=== PATIENT | female | born 1970 | race Caucasian/White ===

== ENCOUNTER 2024-03-18 07:13 | Outpatient (OUT) | payer OTHER, SELFPAY ==
[2024-03-18 07:39] LABS: Basophils Absolute Auto 0.1 10^3/uL (0.0-0.1); Basophils Percent Auto 1.5 % (0.2-2.0); Eosinophils Absolute Auto 0.1 10^3/uL (0.0-0.7); Eosinophils Percent Auto 2.8 % (0.9-7.0); Hematocrit 40.1 % (36.0-48.0); Immature Granulocytes Abs Auto 0.01 10^3/uL (0.00-0.03); Immature Granulocytes Pct Auto 0.2 % (0.0-0.5); Lymphocytes Absolute Auto 1.9 10^3/uL (1.2-3.8); Lymphocytes Percent Auto 41.3 % (20.5-60.0); Mean Corpuscular HGB Conc 32.4 g/dL (29.9-35.2); Mean Corpuscular Hemoglobin 28.8 pg (26.7-34.0); Mean Corpuscular Volume 88.7 fL (81.0-99.0); Mean Platelet Volume 13.3 fL (9.5-13.5); Monocytes Absolute Auto 0.4 10^3/uL (0.3-0.8); Monocytes Percent Auto 9.3 % (1.7-12.0); Neutrophils Absolute Auto 2.1 10^3/uL (1.4-6.5); Neutrophils Percent Auto 44.9 % (43.0-75.0); Platelet Count 158 10^3/uL (150-450); Red Blood Count 4.52 10^6/uL (4.20-5.40); Red Cell Distribution Width 13.2 % (11.0-15.0); White Blood Count 4.6 10^3/uL (4.0-11.0)
[2024-03-18 07:50] LABS: Estimated Average Glucose 108 mg/dL; Glycohemoglobin A1C 5.4 % (4.5-6.2)
[2024-03-18 08:02] LABS: Alanine Aminotransferase 16 U/L (14-59); Albumin Globulin Ratio 1.2; Alkaline Phosphatase 56 U/L (46-116); Aspartate Amino Transferase 19 U/L (15-37); BUN Creatinine Ratio 14.1; Bilirubin Total 0.9 mg/dL (0.2-1.0); Calcium 8.7 mg/dL (8.5-10.1); Carbon Dioxide 25.8 mmol/L (21.0-32.0); Chloride 103 mmol/L (98-107); Chol HDL Ratio 3.6; Cholesterol 179 mg/dL (<=200); Estimated GFR (African America >60 (>=60 mL/min/1.73m^2); Estimated GFR (Non-African Ame >60 (>=60 mL/min/1.73m^2); Free T3 2.21 pg/mL (2.18-3.98); Globulin 3.3 g/dL; Glucose 75 mg/dL (74-106); HDL Cholesterol 50 mg/dL (40-60); Potassium 3.8 mmol/L (3.5-5.1); Sodium 140 mmol/L (136-145); Thyroid Stimulating Hormone 1.572 uIU/mL (0.358-3.740); Total Protein 7.3 g/dL (6.4-8.2); Triglycerides 55 mg/dL (<=150)
== END 2024-03-18 07:14 | disposition home or self-care (01) ==
LOC: LAB 07:13
PROVIDERS: PCP Family Medicine; Visit Provider Family Medicine
DX: Z00.00 Encounter for general adult medical examination without abnormal findings (principal); E78.5 Hyperlipidemia, unspecified; R53.83 Other fatigue; Z12.12 Encounter for screening for malignant neoplasm of rectum; I10 Essential (primary) hypertension; E03.9 Hypothyroidism, unspecified; R73.09 Other abnormal glucose
CPT/HCPCS: 36415; 80053; 80061; 83036; 84436; 84443; 84481; 85025

== ENCOUNTER 2024-03-24 07:42 | Outpatient (REF) | payer OTHER, SELFPAY ==
--- OUTSIDE RECORDS SUMMARY | 2024-03-24 07:45 | XMS_ITS | CCD ---
Author Organization [facility] Care Team Providers Care Program Manager Transportation Name Role Phone Brian Herrera Primary Care Provider HOY, BRIAN Primary Care Unavailable HOY, BRIAN Consulting Unavailable HOY, BRIAN Attending Unavailable HOY, BRIAN Admitting Unavailable HOY, BRIAN Admitting Unavailable HOY, BRIAN Primary Care Unavailable HOY, BRIAN Consulting Unavailable HOY, BRIAN Attending Unavailable HOY, BRIAN Admitting Unavailable HOY, BRIAN Primary Care Unavailable HOY, BRIAN Consulting Unavailable HOY, BRIAN Attending Unavailable GENOVEVA LUTZ Referring Unavailable BRIAN HERRERA Primary Care Unavailable Medications Current Medications Medication Drug Class(es) Dates Sig (Normalized) Sig (Original) calcium carbonate 500 mg oral tablet (1 source) take 1 tablet by aniket th once daily calcium carbonate (OSCAL) 500 MG TABS tablet Take 500 mg by mouth daily 0 Active Problems Active Problems Problem Classification Problem Date Documented Date Episodic/Chronic Diabetes mellitus without complication (1 source) Hyperglycemia, unspecified; Translations: [HYPERGLYCEMIA UNSPECIFIED] Onset: 05-19-2022 Episodic Disorders of lipid metabolism (5 sources) Hyperlipidemia, unspecified; Translations: [HYPERLIPIDEMIA UNSPECIFIED] Onset: 05-16-2022 Chronic Malaise and fatigue (1 source) Other fatigue; Translations: [OTHER FATIGUE] Onset: 05-19-2022 Episodic Menstrual disorders (1 source) Mid-cycle bleeding; Translations: [Intermenstrual bleeding] Chronic Nutritional deficiencies (1 source) Vitamin D deficiency, unspecified; Translations: [VITAMIN D DEFICIENCY UNSPECIFIED] Onset: 05-19-2022 Chronic Other screening for suspected conditions (not mental disorders or infectious disease) (5 sources) Encounter for screening for malignant neoplasm of rectum; Translations: [ENC SCREEN MALIG NEOPLASM RECTUM] Onset: 05-17-2022 Episodic Unclassified (1 source) Patient encounter status; Translations: [Women's annual routine gynecological examination] Past or Other Problems Problem Classification Problem Date Documented Da te Episodic/Chronic Genitourinary symptoms and ill-defined conditions (1 source) Microscopic hematuria; Translations: [Other microscopic hematuria] Onset: 12-28-2016 05-06-2019 Episodic Other diseases of kidney and ureters (1 source) Disorder of kidney and/or ureter; Translations: [Disorder of kidney and ureter, unspecified] Onset: 01-05-2017 05-06-2019 Episodic Results Test Name Value Interpretation Reference Range Facil ity Cytology Reporton 03-13-2023 Cytology report Cyto stain.thin prep Doc (Cvx/Vag) (NOTE) Path Number: [id number] DIAGNOSIS Imaged ThinPrep Pap - Cervical (1 monolayer slide): Specimen Adequacy: Satisfactory for evaluation. - Endocervical/transfor mation zone component present. Descriptive Diagnosis: Negative for intraepithelial lesion or malignancy. Cytotech Screener: EY Electronically Signed Out Rafal FRIAS(ASCP) ey/03/26/2023 Source of Specimen: A: Imaged ThinPrep Pap - Cervical (1 monolayer slide) HPV Reflex?.............. 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 The Pap smear is a screening test primarily for squamous epithelial lesions, which is subject to both false negative and false positive results. Your patient should be reminded to consult you immediately if she experiences any suspicious signs or symptoms, regardless of her Pap smear result. GYNECOLOGIC CYTOLOGY REPORT Patient Name: ENOC MONTE Courtney Med Rec: [id number] [employer] [facility] ANATOMIC PATHOLOGY [facility]. [place], [place] [address] Normal [facility] OCC BLD IMMUNO SCREENon 03-0 OCCULT BLOOD Negative Normal NEGATIVE [facility] Comment on above: Performed By: #### L IPID, T4, TSH, FT3, CMP #### [facility] [address] [place] [address] Dr. Jessica Bran CBC AUTO DIFFon 05-16-2022 BASO # 0.1 103/ul Normal 0.0-0.1 [facility] Comment on above: Performed By: #### L IPID, T4, TSH, FT3, CMP #### [facility] [address] [place] [address] Dr. Jessica Bran Basophils/100 WBC (Bld) 1.1 % Normal 0.2-2.0 [facility] Comment on above: Performed By: #### L IPID, T4, TSH, FT3, CMP #### [facility] [address] [place] [address] Dr. Jessica Bran EO # 0.2 103/ul Normal 0.0-0.7 [facility] Comment on above: Performed By: #### L IPID, T4, TSH, FT3, CMP #### [facility] [address] [place] [address] Dr. Jessica Bran Eosinophils/100 WBC (Bld) 2.5 % Normal 0.9-7.0 [facility] Comment on above: Performed By: #### L IPID, T4, TSH, FT3, CMP #### [facility] [address] [place] [address] Dr. Jessica Bran Erythrocyte distribution width (RBC) [Ratio] 12.8 % Normal 11.0-15.0 [facility] Comment on above: Performed By: #### L IPID, T4, TSH, FT3, CMP #### [facility] [address] [place] [address] Dr. Jessica Bran Hematocrit (Bld) [Volume fraction] 40.8 % Normal 36.0-48.0 [facility] Comment on above: Performed By: #### L IPID, T4, TSH, FT3, CMP #### [facility] [address] [place] [address] Dr. Jessica Bran Hemoglobin (Bld) [Mass/Vol] 13.5 g/dL Normal 12.0-16.0 [facility] Comment on above: Performed By: #### L IPID, T4, TSH, FT3, CMP #### [facility] [address] [place] [address] Dr. Jessica Bran IG # 0.01 10e3/ul Normal 0.00-0.03 [facility] Comment on above: Performed By: #### L IPID, T4, TSH, FT3, CMP #### [facility] [address] [place] [address] Dr. Jessica Bran IG % 0.2 % Normal 0.0-0.5 [facility] Comment on above: Performed By: #### L IPID, T4, TSH, FT3, CMP #### [facility] [address] [place] [address] Dr. Jessica Bran LYMPH # 2.1 103/ul Normal 1.2-3.8 [facility] Comment on above: Performed By: #### L IPID, T4, TSH, FT3, CMP #### [facility] [address] [place] [address] Dr. Jessica Bran Lymphocytes/100 WBC (Bld) 33.6 % Normal 20.5-60.0 [facility] Comment on above: Performed By: #### L IPID, T4, TSH, FT3, CMP #### [facility] [address] [place] [address] Dr. Jessica Bran MANUAL DIFF REQ NO Normal [facility] Comment on above: Performed By: #### L IPID, T4, TSH, FT3, CMP #### [facility] [address] [place] [address] Dr. Jessica Bran MCH (RBC) [Entitic mass] 28.8 pg Normal 26.7-34.0 [facility] Comment on above: Performed By: #### L IPID, T4, TSH, FT3, CMP #### [facility] [address] [place] [address] Dr. Jessica Bran MCHC (RBC) [Mass/Vol] 33.1 g/dL Normal 29.9-35.2 [facility] Comment on above: Performed By: #### L IPID, T4, TSH, FT3, CMP #### [facility] [address] [place] [address] Dr. Jessica Bran MCV (RBC) [Entitic vol] 87.0 fL Normal 81.0-99.0 [facility] Comment on above: Performed By: #### L IPID, T4, TSH, FT3, CMP #### [facility] [address] [place] [address] Dr. Jessica Bran MONO # 0.5 103/ul Normal 0.3-0.8 [facility] Comment on above: Performed By: #### L IPID, T4, TSH, FT3, CMP #### [facility] [address] [place] [address] Dr. Jessica Bran Monocytes/100 WBC (Bld) 7.7 % Normal 1.7-12.0 [facility] Comment on above: Performed By: #### L IPID, T4, TSH, FT3, CMP #### [facility] [address] [place] [address] Dr. Jessica Bran NEUT # 3.4 103/ul Normal 1.4-6.5 [facility] Comment on above: Performed By: #### L IPID, T4, TSH, FT3, CMP #### [facility] [address] [place] [address] Dr. Jessica Bran Neutrophils/100 WBC (Bld) 54.9 % Normal 43.0-75.0 [facility] Comment on above: Performed By: #### L IPID, T4, TSH, FT3, CMP #### [facility] [address] [place] [address] Dr. Jessica Bran Platelet mean volume (Bld) [Entitic vol] 12.4 fL Normal 9.5-13.5 [facility] Comment on above: Performed By: #### L IPID, T4, TSH, FT3, CMP #### [facility] [address] [place] [address] Dr. Jessica Bran PLT 181 103/ul Normal 150-450 [facility] Comment on above: Performed By: #### L IPID, T4, TSH, FT3, CMP #### [facility] [address] [address] [address] Jessica Barn RBC 4.69 106/ul Normal 4.20-5.40 [facility] Comment on above: Performed By: #### L IPID, T4, TSH, FT3, CMP #### [facility] [address] [address] [address] Jessica Bran WBC 6.1 103/ul Normal 4.0-11.0 [facility] Comment on above: Performed By: #### L IPID, T4, TSH, FT3, CMP #### [facility] [address] [place] [address] Dr. Jessica Bran FREE T3on 05-16-2022 FREE T3 2.76 pg/mlL Normal 2.18-3.98 [facility] Comment on above: Performed By: #### L IPID, T4, TSH, FT3, CMP #### [facility] [address] [place] [address] Dr. Jessica Bran GLYCOHEMOGLOBIN A1Con 2022 ADA RECOMMENDATION SEE BELOW Normal [facility] Comment on above: Result Comment: ADA RECOMMENDED LIMIT 4.0 - 6.0 ADA THERAPEUTIC TARGET < 7.0 ACTION SUGGESTED > 7.0 Performed By: #### A 1C #### [facility] [address] [place] [address] Dr. Jessica Bran Glucose [Mass/Vol] 100 mg/dL Normal [facility] Comment on above: Performed By: #### A 1C #### [facility] [address] [place] [address] Dr. Jessica Bran HbA1c (Bld) [Mass fraction] 5.1 % Normal 4.5-6.2 [facility] Comment on above: Performed By: #### A 1C #### [facility] [address] [place] [address] Dr. Jessica Bran LIPID PROFILEon 05-16-2022 CHOL-HDL RATIO NORM SEE BELOW Normal [facility] Comment on above: Result Comment: 3.3 - 4.4 LOW RISK 4.4 - 7.1 AVERAGE RISK 7.1 - 11.0 MODERATE RISK >11.0 HIGH RISK Performed By: #### L IPID, T4, TSH, FT3, CMP #### [facility] [address] [address] [address] Jessica Bran Cholesterol [Mass/Vol] 166 mg/dL Normal <=200 [facility] Comment on above: Performed By: #### L IPID, T4, TSH, FT3, CMP #### [facility] [address] [address] [address] Jessica Bran Cholesterol in HDL [Mass/Vol] 49 mg/dL Normal 40-60 [facility] Comment on above: Performed By: #### L IPID, T4, TSH, FT3, CMP #### [facility] [address] [place] [address] Dr. Jessica Bran Cholesterol in LDL [Mass/Vol] 102.6 mg/dL Normal [facility] Comment on above: Performed By: #### L IPID, T4, TSH, FT3, CMP #### [facility] [address] [address] [address] Jessica Bran Cholesterol.total/Cho lesterol in HDL [Mass ratio] 3.4 {ratio} Normal [facility] Comment on above: Performed By: #### L IPID, T4, TSH, FT3, CMP #### [facility] [address] [address] [address] Jessica Bran HDL NORMAL > or = 60 mg/dl - LO W CARDIOVASCULAR RISK <40 mg/dl - HIGH CARDIOVASCULAR RISK Normal [facility] Comment on above: Performed By: #### L IPID, T4, TSH, FT3, CMP #### [facility] [address] [place] [address] Dr. Jessica Bran LDL CALC NORMAL SEE BELOW Normal [facility] Comment on above: Result Comment: <100 mg/dl OPTIMAL 100 - 129 mg/dl NEAR OR ABOVE OPTIMAL 130 - 159 mg/dl BORDERLINE HIGH 160 - 189 mg/dl HIGH >190 mg/dl VERY HIGH Performed By: #### L IPID, T4, TSH, FT3, CMP #### [facility] [address] [address] [address] Jessica Bran Triglyceride [Mass/Vol] 72 mg/dL Normal <=150 [facility] Comment on above: Performed By: #### L IPID, T4, TSH, FT3, CMP #### [facility] [address] [address] [address] Jessica Bran VLDL CALC 14.4 mg/dL Normal [facility] Comment on above: Performed By: #### L IPID, T4, TSH, FT3, CMP #### [facility] [address] [address] [address] Jessica Bran PROF 14(COMP METB)on 023 Albumin [Mass/Vol] 4.1 g/dL Normal 3.4-5.0 [facility] Comment on above: Performed By: #### L IPID, T4, TSH, FT3, CMP #### [facility] [address] [address] [address] Jessica Bran Albumin/Globulin [Mass ratio] 1.2 {ratio} Normal [facility] Comment on above: Performed By: #### L IPID, T4, TSH, FT3, CMP #### [facility] [address] [address] [address] Jessica Bran ALP [Catalytic activity/Vol] 64 U/L Normal 46-116 [facility] Comment on above: Performed By: #### L IPID, T4, TSH, FT3, CMP #### [facility] [address] [address] [address] Jessica Bran ALT [Catalytic activity/Vol] 15 U/L Normal 14-59 [facility] Comment on above: Performed By: #### L IPID, T4, TSH, FT3, CMP #### [facility] [address] [address] [address] Jessica Bran Anion gap [Moles/Vol] 8.7 mmol/L Normal [facility] Comment on above: Performed By: #### L IPID, T4, TSH, FT3, CMP #### [facility] [address] [place] [address] Dr. Jessica Bran AST [Catalytic activity/Vol] 17 U/L Normal 15-37 [facility] Comment on above: Performed By: #### L IPID, T4, TSH, FT3, CMP #### [facility] [address] [place] [address] Dr. Jessica Bran Bilirubin [Mass/Vol] 0.7 mg/dL Normal 0.2-1.0 [facility] Comment on above: Performed By: #### L IPID, T4, TSH, FT3, CMP #### [facility] [address] [place] [address] Dr. Jessica Bran Calcium [Mass/Vol] 9.1 mg/dL Normal 8.5-10.1 [facility] Comment on above: Performed By: #### L IPID, T4, TSH, FT3, CMP #### [facility] [address] [place] [address] Dr. Jessica Bran Chloride [Moles/Vol] 105 mmol/L Normal 98-107 [facility] Comment on above: Performed By: #### L IPID, T4, TSH, FT3, CMP #### [facility] [address] [place] [address] Dr. Jessica Bran CO2 [Moles/Vol] 28.4 mmol/L Normal 21.0-32.0 [facility] Comment on above: Performed By: #### L IPID, T4, TSH, FT3, CMP #### [facility] [address] [place] [address] Dr. Jessica Bran Creatinine [Mass/Vol] 0.73 mg/dL Normal 0.55-1.02 [facility] Comment on above: Performed By: #### L IPID, T4, TSH, FT3, CMP #### [facility] [address] [place] [address] Dr. Jessica Bran EGFR-AF EGYPTIAN >60 Normal >=60 [facility] Comment on above: Performed By: #### L IPID, T4, TSH, FT3, CMP #### [facility] [address] [place] [address] Dr. Jessica Bran EGFR-NON AF EGYPTIAN >60 Normal >=60 [facility] Comment on above: Performed By: #### L IPID, T4, TSH, FT3, CMP #### [facility] [address] [place] [address] Dr. Jessica Bran Globulin (S) [Mass/Vol] 3.4 g/dL Normal [facility] Comment on above: Performed By: #### L IPID, T4, TSH, FT3, CMP #### [facility] [address] [place] [address] Dr. Jessica Bran Glucose [Mass/Vol] 90 mg/dL Normal 74-106 [facility] Comment on above: Performed By: #### L IPID, T4, TSH, FT3, CMP #### [facility] [address] [place] [address] Dr. Jessica Bran Potassium [Moles/Vol] 4.1 mmol/L Normal 3.5-5.1 [facility] Comment on above: Performed By: #### L IPID, T4, TSH, FT3, CMP #### [facility] [address] [place] [address] Dr. Jessica Bran Protein [Mass/Vol] 7.5 g/dL Normal 6.4-8.2 [facility] Comment on above: Performed By: #### L IPID, T4, TSH, FT3, CMP #### [facility] [address] [place] [address] Dr. Jessica Bran Sodium [Moles/Vol] 138 mmol/L Normal 136-145 [facility] Comment on above: Performed By: #### L IPID, T4, TSH, FT3, CMP #### [facility] [address] [place] [address] Dr. Jessica Bran Urea nitrogen [Mass/Vol] 7.0 mg/dL Normal 7.0-18.0 [facility] Comment on above: Performed By: #### L IPID, T4, TSH, FT3, CMP #### [facility] [address] [place] [address] Dr. Jessica Bran Urea nitrogen/Creatinine [Mass ratio] 9.6 mg/mg Normal [facility] Comment on above: Performed By: #### L IPID, T4, TSH, FT3, CMP #### [facility] [address] [place] [address] Dr. Jessica Bran T4on 05-16-2022 T4 [Mass/Vol] 6.40 ug/dL Normal 4.80-13.90 [facility] Comment on above: Performed By: #### L IPID, T4, TSH, FT3, CMP #### [facility] [address] [place] [address] Dr. Jessica Bran TSHon 05-16-2022 TSH 1.628 uIU/mL Normal 0.358-3.740 [facility] Comment on above: Performed By: #### L IPID, T4, TSH, FT3, CMP #### [facility] [address] [place] [address] Dr. Jessica Bran VITAMIN D 25 OHon 05-16-2022 VIT D 25-OH 26.4 ng/mL Normal [facility] Comment on above: Performed By: #### V ITAD #### [facility] [address] [place] [address] Dr. Jessica Bran VIT D RANGES SEE BELOW Normal [facility] Comment on above: Result Comment: <20 ng/mL Vit D deficient 20 - <30 ng/mL Vit D insufficient 30 - 100 ng/mL Vit D sufficient >100 ng/mL Potential Toxicity Performed By: #### V ITAD #### [facility] [address] [place] [address] Dr. Jessica Bran CBC AUTO DIFFon 07-07-2021 BASO # 0.1 103/ul Normal 0.0-0.1 [facility] Comment on above: Performed By: #### L IPID, T4, TSH, FT3, CMP #### [facility] [address] [place] [address] Dr. Jessica Bran Basophils/100 WBC (Bld) 1.2 % Normal 0.2-2.0 [facility] Comment on above: Performed By: #### L IPID, T4, TSH, FT3, CMP #### [facility] [address] [place] [address] Dr. Jessica Bran EO # 0.1 103/ul Normal 0.0-0.7 [facility] Comment on above: Performed By: #### L IPID, T4, TSH, FT3, CMP #### [facility] [address] [place] [address] Dr. Jessica Bran Eosinophils/100 WBC (Bld) 2.1 % Normal 0.9-7.0 [facility] Comment on above: Performed By: #### L IPID, T4, TSH, FT3, CMP #### [facility] [address] [place] [address] Dr. Jessica Bran Erythrocyte distribution width (RBC) [Ratio] 12.6 % Normal 11.0-15.0 [facility] Comment on above: Performed By: #### L IPID, T4, TSH, FT3, CMP #### [facility] [address] [place] [address] Dr. Jessica Bran Hematocrit (Bld) [Volume fraction] 39.2 % Normal 36.0-48.0 [facility] Comment on above: Performed By: #### L IPID, T4, TSH, FT3, CMP #### [facility] [address] [place] [address] Dr. Jessica Bran Hemoglobin (Bld) [Mass/Vol] 12.5 g/dL Normal 12.0-16.0 [facility] Comment on above: Performed By: #### L IPID, T4, TSH, FT3, CMP #### [facility] [address] [place] [address] Dr. Jessica Bran IG # 0.03 10e3/ul Normal 0.00-0.03 [facility] Comment on above: Performed By: #### L IPID, T4, TSH, FT3, CMP #### [facility] [address] [place] [address] Dr. Jessica Bran IG % 0.5 % Normal 0.0-0.5 [facility] Comment on above: Performed By: #### L IPID, T4, TSH, FT3, CMP #### [facility] [address] [place] [address] Dr. Jessica Bran LYMPH # 1.9 103/ul Normal 1.2-3.8 [facility] Comment on above: Performed By: #### L IPID, T4, TSH, FT3, CMP #### [facility] [address] [place] [address] Dr. Jessica Bran Lymphocytes/100 WBC (Bld) 29.6 % Normal 20.5-60.0 [facility] Comment on above: Performed By: #### L IPID, T4, TSH, FT3, CMP #### [facility] [address] [place] [address] Dr. Jessica Bran MANUAL DIFF REQ NO Normal [facility] Comment on above: Performed By: #### L IPID, T4, TSH, FT3, CMP #### [facility] [address] [place] [address] Dr. Jessica Bran MCH (RBC) [Entitic mass] 28.1 pg Normal 26.7-34.0 [facility] Comment on above: Performed By: #### L IPID, T4, TSH, FT3, CMP #### [facility] [address] [place] [address] Dr. Jessica Bran MCHC (RBC) [Mass/Vol] 31.9 g/dL Normal 29.9-35.2 [facility] Comment on above: Performed By: #### L IPID, T4, TSH, FT3, CMP #### [facility] [address] [place] [address] Dr. Jessica Bran MCV (RBC) [Entitic vol] 88.1 fL Normal 81.0-99.0 [facility] Comment on above: Performed By: #### L IPID, T4, TSH, FT3, CMP #### [facility] [address] [place] [address] Dr. Jessica Bran MONO # 0.5 103/ul Normal 0.3-0.8 [facility] Comment on above: Performed By: #### L IPID, T4, TSH, FT3, CMP #### [facility] [address] [place] [address] Dr. Jessica Bran Monocytes/100 WBC (Bld) 8.3 % Normal 1.7-12.0 [facility] Comment on above: Performed By: #### L IPID, T4, TSH, FT3, CMP #### [facility] [address] [place] [address] Dr. Jessica Bran NEUT # 3.8 103/ul Normal 1.4-6.5 [facility] Comment on above: Performed By: #### L IPID, T4, TSH, FT3, CMP #### [facility] [address] [place] [address] Dr. Jessica Bran Neutrophils/100 WBC (Bld) 58.3 % Normal 43.0-75.0 [facility] Comment on above: Performed By: #### L IPID, T4, TSH, FT3, CMP #### [facility] [address] [place] [address] Dr. Jessica Bran Platelet mean volume (Bld) [Entitic vol] 12.8 fL Normal 9.5-13.5 [facility] Comment on above: Performed By: #### L IPID, T4, TSH, FT3, CMP #### [facility] [address] [place] [address] Dr. Jessica Bran PLT 188 103/ul Normal 150-450 [facility] Comment on above: Performed By: #### L IPID, T4, TSH, FT3, CMP #### [facility] [address] [place] [address] Dr. Jessica Bran RBC 4.45 106/ul Normal 4.20-5.40 [facility] Comment on above: Performed By: #### L IPID, T4, TSH, FT3, CMP #### [facility] [address] [place] [address] Dr. Jessica Bran WBC 6.5 103/ul Normal 4.0-11.0 [facility] Comment on above: Performed By: #### L IPID, T4, TSH, FT3, CMP #### [facility] [address] [address] [address] Jessica Bran FREE THYROXINE INDEX T7on FTI 2.74 Normal [facility] Comment on above: Performed By: #### C MP, T7, LIPID, TSH #### [facility] [address] [address] [address] Jessica Bran T3U 36.0 % Normal 23.5-40.5 [facility] Comment on above: Performed By: #### C MP, T7, LIPID, TSH #### [facility] [address] [place] [address] Dr. Jessica Bran T4 [Mass/Vol] 7.60 ug/dL Normal 4.80-13.90 [facility] Comment on above: Performed By: #### C MP, T7, LIPID, TSH #### [facility] [address] [place] [address] Dr. Jessica Bran GLYCOHEMOGLOBIN A1Con 2021 ADA RECOMMENDATION SEE BELOW Normal [facility] Comment on above: Result Comment: ADA RECOMMENDED LIMIT 4.0 - 6.0 ADA THERAPEUTIC TARGET < 7.0 ACTION SUGGESTED > 7.0 Performed By: #### A 1C #### [facility] [address] [place] [address] Dr. Jessica Bran Glucose [Mass/Vol] 108 mg/dL Normal [facility] Comment on above: Performed By: #### A 1C #### [facility] [address] [place] [address] Dr. Jessica Bran HbA1c (Bld) [Mass fraction] 5.4 % Normal 4.5-6.2 [facility] Comment on above: Performed By: #### A 1C #### [facility] [address] [place] [address] Dr. Jessica Bran LIPID PROFILEon 07-07-2021 CHOL-HDL RATIO NORM SEE BELOW Normal [facility] Comment on above: Result Comment: 3.3 - 4.4 LOW RISK 4.4 - 7.1 AVERAGE RISK 7.1 - 11.0 MODERATE RISK >11.0 HIGH RISK Performed By: #### L IPID, T4, TSH, FT3, CMP #### [facility] [address] [place] [address] Dr. Jessica Bran Cholesterol [Mass/Vol] 140 mg/dL Normal <=200 [facility] Comment on above: Performed By: #### L IPID, T4, TSH, FT3, CMP #### [facility] [address] [place] [address] Dr. Jessica Bran Cholesterol in HDL [Mass/Vol] 46 mg/dL Normal 40-60 [facility] Comment on above: Performed By: #### L IPID, T4, TSH, FT3, CMP #### [facility] [address] [place] [address] Dr. Jessica Bran Cholesterol in LDL [Mass/Vol] 83.4 mg/dL Normal [facility] Comment on above: Performed By: #### L IPID, T4, TSH, FT3, CMP #### [facility] [address] [place] [address] Dr. Jessica Bran Cholesterol.total/Cho lesterol in HDL [Mass ratio] 3.0 {ratio} Normal [facility] Comment on above: Performed By: #### L IPID, T4, TSH, FT3, CMP #### [facility] [address] [place] [address] Dr. Jessica Bran HDL NORMAL > or = 60 mg/dl - LO W CARDIOVASCULAR RISK <40 mg/dl - HIGH CARDIOVASCULAR RISK Normal [facility] Comment on above: Performed By: #### L IPID, T4, TSH, FT3, CMP #### [facility] [address] [place] [address] Dr. Jessica Bran LDL CALC NORMAL SEE BELOW Normal [facility] Comment on above: Result Comment: <100 mg/dl OPTIMAL 100 - 129 mg/dl NEAR OR ABOVE OPTIMAL 130 - 159 mg/dl BORDERLINE HIGH 160 - 189 mg/dl HIGH >190 mg/dl VERY HIGH Performed By: #### L IPID, T4, TSH, FT3, CMP #### [facility] [address] [place] [address] Dr. Jessica Bran Triglyceride [Mass/Vol] 53 mg/dL Normal <=150 [facility] Comment on above: Performed By: #### L IPID, T4, TSH, FT3, CMP #### [facility] [address] [address] [address] Jessica Bran VLDL CALC 10.6 mg/dL Normal [facility] Comment on above: Performed By: #### L IPID, T4, TSH, FT3, CMP #### [facility] [address] [address] [address] Jessica Bran PROF 14(COMP METB)on 022 Albumin [Mass/Vol] 3.8 g/dL Normal 3.4-5.0 [facility] Comment on above: Performed By: #### C MP, T7, LIPID, TSH #### [facility] [address] [address] [address] Jessica Bran Albumin/Globulin [Mass ratio] 1.1 {ratio} Normal [facility] Comment on above: Performed By: #### C MP, T7, LIPID, TSH #### [facility] [address] [address] [address] Jessica Bran ALP [Catalytic activity/Vol] 44 U/L Critically low 46-116 [facility] Comment on above: Performed By: #### C MP, T7, LIPID, TSH #### [facility] [address] [address] [address] Jessica Bran ALT [Catalytic activity/Vol] 16 U/L Normal 14-59 [facility] Comment on above: Performed By: #### C MP, T7, LIPID, TSH #### [facility] [address] [address] [address] Jessica Bran Anion gap [Moles/Vol] 12.4 mmol/L Normal [facility] Comment on above: Performed By: #### C MP, T7, LIPID, TSH #### [facility] [address] [address] [address] Jessica Bran AST [Catalytic activity/Vol] 12 U/L Critically low 15-37 [facility] Comment on above: Performed By: #### C MP, T7, LIPID, TSH #### [facility] [address] [address] [address] Jessica Bran Bilirubin [Mass/Vol] 0.7 mg/dL Normal 0.2-1.0 [facility] Comment on above: Performed By: #### C MP, T7, LIPID, TSH #### [facility] [address] [place] [address] Dr. Jessica Bran Calcium [Mass/Vol] 8.1 mg/dL Critically low 8.5-10.1 [facility] Comment on above: Performed By: #### C MP, T7, LIPID, TSH #### [facility] [address] [place] [address] Dr. Jessica Bran Chloride [Moles/Vol] 103 mmol/L Normal 98-107 [facility] Comment on above: Performed By: #### C MP, T7, LIPID, TSH #### [facility] [address] [place] [address] Dr. Jessica Bran CO2 [Moles/Vol] 24.5 mmol/L Normal 21.0-32.0 [facility] Comment on above: Performed By: #### C MP, T7, LIPID, TSH #### [facility] [address] [place] [address] Dr. Jessica Bran Creatinine [Mass/Vol] 0.79 mg/dL Normal 0.55-1.02 [facility] Comment on above: Performed By: #### C MP, T7, LIPID, TSH #### [facility] [address] [place] [address] Dr. Jessica Bran EGFR-AF EGYPTIAN >60 Normal >=60 [facility] Comment on above: Performed By: #### C MP, T7, LIPID, TSH #### [facility] [address] [place] [address] Dr. Jessica Bran EGFR-NON AF EGYPTIAN >60 Normal >=60 [facility] Comment on above: Performed By: #### C MP, T7, LIPID, TSH #### [facility] [address] [place] [address] Dr. Jessica Bran Globulin (S) [Mass/Vol] 3.4 g/dL Normal [facility] Comment on above: Performed By: #### C MP, T7, LIPID, TSH #### [facility] [address] [address] [address] Jessica Bran Glucose [Mass/Vol] 87 mg/dL Normal 74-106 [facility] Comment on above: Performed By: #### C MP, T7, LIPID, TSH #### [facility] [address] [address] [address] Jessica Bran Potassium [Moles/Vol] 3.9 mmol/L Normal 3.5-5.1 [facility] Comment on above: Performed By: #### C MP, T7, LIPID, TSH #### [facility] [address] [place] [address] Dr. Jessica Bran Protein [Mass/Vol] 7.2 g/dL Normal 6.1-8.2 [facility] Comment on above: Performed By: #### C MP, T7, LIPID, TSH #### [facility] [address] [address] [address] Jessica Bran Sodium [Moles/Vol] 136 mmol/L Normal 136-145 [facility] Comment on above: Performed By: #### C MP, T7, LIPID, TSH #### [facility] [address] [place] [address] Dr. Jessica Bran Urea nitrogen [Mass/Vol] 9.0 mg/dL Normal 7.0-18.0 [facility] Comment on above: Performed By: #### C MP, T7, LIPID, TSH #### [facility] [address] [place] [address] Dr. Jessica Bran Urea nitrogen/Creatinine [Mass ratio] 11.4 mg/mg Normal [facility] Comment on above: Performed By: #### C MP, T7, LIPID, TSH #### [facility] [address] [address] [address] Jessica Bran TSHon 07-07-2021 TSH 1.810 uIU/mL Normal 0.470-4.680 [facility] Comment on above: Performed By: #### L IPID, T4, TSH, FT3, CMP #### [facility] [address] [address] [address] Jessica Bran TSH RANGE SEE BELOW Normal [facility] Comment on above: Result Comment: <0.3 4 UIU/ml HYPERTHYROID 0.34-5.60 UIU/ml EUTHYROID >5.60 UIU/ml HYPOTHYROID Performed By: #### L IPID, T4, TSH, FT3, CMP #### [facility] [address] [place], [place] [address] Dr. Jessica Bran Encounters Encounter Date Encounter Type Care Provider Facility Start: 03-13-2023 End: 03-14-2023 ambulatory [facility] Start: 03-13-2023 Encounter for gynecological examination (general) (routine) without abnormal findings [facility] Start: 05-17-2022 End: 05-17-2022 ambulatory BRIAN HOY Facility:[facility] Start: 05-16-2022 End: 05-17-2022 ambulatory BRIAN HOY Facility:[facility] Start: 07-11-2021 Encounter for genera l adult medical examination without abnormal findings BRIAN HERRERA [facility] Start: 07-07-2021 End: 07-08-2021 ambulatory BRIAN HOY Facility:[facility] Start: 07-07-2021 End: 07-08-2021 Encounter for general adult medical examination without abnormal findings BRIAN HERRERA Facility: Start: 05-26-2020 End: 05-26-2020 Subsequent hospital visit by physician Brian Herrera [facility] Comment on above: Intermenstrual bleed ing; Women's annual routine gynecological examination Plan of Treatment Date Care Activity Detail Author Start: 05-19-2024 Lipid panel Lipid screen [employer] Phone: Start: 12-31-2022 Screening for malign ant neoplasm of cervix Cervical cancer screen [facility] Phone: Start: 04-27-2021 Influenza vaccination Flu vaccine (# 1) [facility] Phone: Comment on above: Postponed from 11/09 (Patient Refused) Start: 06-13-2020 End: 06-13-2020 Ancillary Procedure [facility] Start: 08-09-1990 DTaP/Tdap/Td vaccine (1 - Tdap) DTaP/Tdap/Td vaccine (1 - Tdap) [facility] Phone: Start: 08-09-1986 HIV screening HIV screen [facility] Work Phone: Start: 1971 Hepatitis C screening Hepatitis C sc reen [facility] Phone: End: 05-26-2020 Cytopathology procedure, preparation of smear, genital source [facility] Routine Women's Annual Routine Gynecological Examination 1 Occurrences starting 05/26/2020 until 05/26/2020 [facility] Comment on above: 1 Occurrences starti ng 05/26/2020 until 05/26/2020 End: 05-26-2020 Surgical Pathology Surgical Pathology Lab Routine Intermenstrual bleeding 1 Occurrences starting 05/26/2020 until 05/26/2020 [facility]: Comment on above: 1 Occurrences starti ng 05/26/2020 until 05/26/2020 Immunizations Immunization Date Immunization Notes Care Provider Mary felix 12-24-2006 tuberculin skin test ; purified protein derivative solution, intradermal [facility] Phone: Payers Date Payer Category Payer Unknown [id number] 1970 Unknown [id number] 1971 Unknown [id number] 1971 Unknown [id number] 1971 Unknown [id number] Social History Date Type Detail Facility Start: 05-26-2020 Tobacco smoking stat [facility] Never smoker [facility] Phone: Start: 05-26-2020 Tobacco use and exposure Never used [facility] Phone: Start: 05-26-2020 Alcohol intake Current non-dr delineator of alcohol (finding) [facility] Phone: Sex Assigned At Not on file [facility] Phone: Assessments Diagnosis Intermenstrual bleeding Metrorrhagia Women's annual routine gynecological examination Advance Directives No Advanced Directives Records FoundDocuments on File Type Date 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 This clinical summary was aggregated from multiple sources. Caution should be exercised in using it in the provision of clinical care. This summary normalizes information from multiple sources, and as a consequence, information in this document may materially change the coding, format and clinical context of patient data. In addition, data may be omitted in some cases. CLINICAL DECISIONS SHOULD BE BASED ON THE PRIMARY CLINICAL RECORDS. [employer] provides no warranty or guarantee of the accuracy or completeness of information in this document.
[2024-03-24 11:50] LABS: Internal Control Within Normal Limits; Occult Blood Positive
== END 2024-03-24 07:43 | disposition home or self-care (01) ==
LOC: LAB 07:42
PROVIDERS: PCP Family Medicine; Visit Provider Family Medicine
DX: Z00.00 Encounter for general adult medical examination without abnormal findings (principal)
CPT/HCPCS: G0328

== ENCOUNTER 2024-03-27 07:20 | Outpatient (OUT) | payer OTHER, SELFPAY ==
--- OUTSIDE RECORDS SUMMARY | 2024-03-27 07:22 | XMS_ITS | CCD ---
Author Organization [facility] Care Team Providers Care Extruding Press Operator Name Role Phone Brian Herrera Primary Care Provider [phone] HOY, BRIAN Primary Care Unavailable HOY, BRIAN [...] stain.thin prep Doc (Cvx/Vag) (NOTE) Path Number: [id number] DIAGNOSIS Imaged ThinPrep Pap - Cervical (1 monolayer slide): Specimen Adequacy: Satisfactory for evaluation. - Endocervical/transfor mation zone component present. Descriptive Diagnosis: Negative for intraepithelial lesion or malignancy. Cytotech Screener: EY Electronically Signed Out Rafal FRIAS(ASCP) ey/03/26/2023 Source of Specimen: A: Imaged ThinPrep Pap - Cervical (1 monolayer slide) HPV Reflex?.............. 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 [place], [place] [address] Normal [facility] OCC BLD IMMUNO SCREENon 03-0 OCCULT BLOOD Negative Normal NEGATIVE [facility] Comment on above: Performed By: #### L IPID, T4, TSH, FT3, CMP #### [facility] [address] [place] [address] Dr. Jessica Bran CBC AUTO DIFFon 05-16-2022 BASO # 0.1 103/ul Normal 0.0-0.1 [facility] Comment on above: Performed By: #### L IPID, T4, TSH, FT3, CMP #### [facility] [address] [place] [address] Dr. Jessica Bran Basophils/100 WBC (Bld) 1.1 % Normal 0.2-2.0 [facility] Comment on above: Performed By: #### L IPID, T4, TSH, FT3, CMP #### [facility] [address] [place] [address] Dr. Jessica Bran EO # 0.2 103/ul Normal 0.0-0.7 [facility] Comment on above: Performed By: #### L IPID, T4, TSH, FT3, CMP #### [facility] [address] [place] [address] Dr. Jessica Bran Eosinophils/100 WBC (Bld) 2.5 % Normal 0.9-7.0 [facility] Comment on above: Performed By: #### L IPID, T4, TSH, FT3, CMP #### [facility] [address] [place] [address] Dr. Jessica Bran Erythrocyte distribution width (RBC) [Ratio] 12.8 % Normal 11.0-15.0 [facility] Comment on above: Performed By: #### L IPID, T4, TSH, FT3, CMP #### [facility] [address] [place] [address] Dr. Jessica Bran Hematocrit (Bld) [Volume fraction] 40.8 % Normal 36.0-48.0 [facility] Comment on above: Performed By: #### L IPID, T4, TSH, FT3, CMP #### [facility] [address] [place] [address] Dr. Jessica Bran Hemoglobin (Bld) [Mass/Vol] 13.5 g/dL Normal 12.0-16.0 [facility] Comment on above: Performed By: #### L IPID, T4, TSH, FT3, CMP #### [facility] [address] [place] [address] Dr. Jessica Bran IG # 0.01 10e3/ul Normal 0.00-0.03 [facility] Comment on above: Performed By: #### L IPID, T4, TSH, FT3, CMP #### [facility] [address] [place] [address] Dr. Jessica Bran IG % 0.2 % Normal 0.0-0.5 [facility] Comment on above: Performed By: #### L IPID, T4, TSH, FT3, CMP #### [facility] [address] [place] [address] Dr. Jessica Bran LYMPH # 2.1 103/ul Normal 1.2-3.8 [facility] Comment on above: Performed By: #### L IPID, T4, TSH, FT3, CMP #### [facility] [address] [place] [address] Dr. Jessica Bran Lymphocytes/100 WBC (Bld) 33.6 % Normal 20.5-60.0 [facility] Comment on above: Performed By: #### L IPID, T4, TSH, FT3, CMP #### [facility] [address] [place] [address] Dr. Jessica Bran MANUAL DIFF REQ NO Normal [facility] Comment on above: Performed By: #### L IPID, T4, TSH, FT3, CMP #### [facility] [address] [place] [address] Dr. Jessica Bran MCH (RBC) [Entitic mass] 28.8 pg Normal 26.7-34.0 [facility] Comment on above: Performed By: #### L IPID, T4, TSH, FT3, CMP #### [facility] [address] [place] [address] Dr. Jessica Bran MCHC (RBC) [Mass/Vol] 33.1 g/dL Normal 29.9-35.2 [facility] Comment on above: Performed By: #### L IPID, T4, TSH, FT3, CMP #### [facility] [address] [place] [address] Dr. Jessica Bran MCV (RBC) [Entitic vol] 87.0 fL Normal 81.0-99.0 [facility] Comment on above: Performed By: #### L IPID, T4, TSH, FT3, CMP #### [facility] [address] [place] [address] Dr. Jessica Bran MONO # 0.5 103/ul Normal 0.3-0.8 [facility] Comment on above: Performed By: #### L IPID, T4, TSH, FT3, CMP #### [facility] [address] [place] [address] Dr. Jessica Bran Monocytes/100 WBC (Bld) 7.7 % Normal 1.7-12.0 [facility] Comment on above: Performed By: #### L IPID, T4, TSH, FT3, CMP #### [facility] [address] [place] [address] Dr. Jessica Bran NEUT # 3.4 103/ul Normal 1.4-6.5 [facility] Comment on above: Performed By: #### L IPID, T4, TSH, FT3, CMP #### [facility] [address] [place] [address] Dr. Jessica Bran Neutrophils/100 WBC (Bld) 54.9 % Normal 43.0-75.0 [facility] Comment on above: Performed By: #### L IPID, T4, TSH, FT3, CMP #### [facility] [address] [place] [address] Dr. Jessica Bran Platelet mean volume (Bld) [Entitic vol] 12.4 fL Normal 9.5-13.5 [facility] Comment on above: Performed By: #### L IPID, T4, TSH, FT3, CMP #### [facility] [address] [place] [address] Dr. Jessica Bran PLT 181 103/ul Normal 150-450 [facility] Comment on above: Performed By: #### L IPID, T4, TSH, FT3, CMP #### [facility] [address] [address] [address] Jessica Bran RBC 4.69 106/ul Normal 4.20-5.40 [facility] Comment on above: Performed By: #### L IPID, T4, TSH, FT3, CMP #### [facility] [address] [address] [address] Jessica Bran WBC 6.1 103/ul Normal 4.0-11.0 [facility] Comment on above: Performed By: #### L IPID, T4, TSH, FT3, CMP #### [facility] [address] [place] [address] Dr. Jessica Bran FREE T3on 05-16-2022 FREE T3 2.76 pg/mlL Normal 2.18-3.98 [facility] Comment on above: Performed By: #### L IPID, T4, TSH, FT3, CMP #### [facility] [address] [place] [address] Dr. Jessica Bran GLYCOHEMOGLOBIN A1Con 2022 ADA RECOMMENDATION SEE BELOW Normal [facility] Comment on above: Result Comment: ADA RECOMMENDED LIMIT 4.0 - 6.0 ADA THERAPEUTIC TARGET < 7.0 ACTION SUGGESTED > 7.0 Performed By: #### A 1C #### [facility] [address] [place] [address] Dr. Jessica Bran Glucose [Mass/Vol] 100 mg/dL Normal [facility] Comment on above: Performed By: #### A 1C #### [facility] [address] [place] [address] Dr. Jessica Bran HbA1c (Bld) [Mass fraction] 5.1 % Normal 4.5-6.2 [facility] Comment on above: Performed By: #### A 1C #### [facility] [address] [place] [address] Dr. Jessica Bran LIPID PROFILEon 05-16-2022 CHOL-HDL RATIO NORM SEE BELOW Normal [facility] Comment on above: Result Comment: 3.3 - 4.4 LOW RISK 4.4 - 7.1 AVERAGE RISK 7.1 - 11.0 MODERATE RISK >11.0 HIGH RISK Performed By: #### L IPID, T4, TSH, FT3, CMP #### [facility] [address] [address] [address] Jessica Bran Cholesterol [Mass/Vol] 166 mg/dL Normal <=200 [facility] Comment on above: Performed By: #### L IPID, T4, TSH, FT3, CMP #### [facility] [address] [address] [address] Jessica Bran Cholesterol in HDL [Mass/Vol] 49 mg/dL Normal 40-60 [facility] Comment on above: Performed By: #### L IPID, T4, TSH, FT3, CMP #### [facility] [address] [place] [address] Dr. Jessica Bran Cholesterol in LDL [Mass/Vol] 102.6 mg/dL Normal [facility] Comment on above: Performed By: #### L IPID, T4, TSH, FT3, CMP #### [facility] [address] [address] [address] Jessica Bran Cholesterol.total/Cho lesterol in HDL [Mass ratio] 3.4 {ratio} Normal [facility] Comment on above: Performed By: #### L IPID, T4, TSH, FT3, CMP #### [facility] [address] [address] [address] Jessica Bran HDL NORMAL > or = 60 mg/dl - LO W CARDIOVASCULAR RISK <40 mg/dl - HIGH CARDIOVASCULAR RISK Normal [facility] Comment on above: Performed By: #### L IPID, T4, TSH, FT3, CMP #### [facility] [address] [place] [address] Dr. Jessica Bran LDL CALC NORMAL SEE BELOW Normal [facility] Comment on above: Result Comment: <100 mg/dl OPTIMAL 100 - 129 mg/dl NEAR OR ABOVE OPTIMAL 130 - 159 mg/dl BORDERLINE HIGH 160 - 189 mg/dl HIGH >190 mg/dl VERY HIGH Performed By: #### L IPID, T4, TSH, FT3, CMP #### [facility] [address] [address] [address] Jessica Bran Triglyceride [Mass/Vol] 72 mg/dL Normal <=150 [facility] Comment on above: Performed By: #### L IPID, T4, TSH, FT3, CMP #### [facility] [address] [address] [address] Jessica Bran VLDL CALC 14.4 mg/dL Normal [facility] Comment on above: Performed By: #### L IPID, T4, TSH, FT3, CMP #### [facility] [address] [address] [address] Jessica Bran PROF 14(COMP METB)on 023 Albumin [Mass/Vol] 4.1 g/dL Normal 3.4-5.0 [facility] Comment on above: Performed By: #### L IPID, T4, TSH, FT3, CMP #### [facility] [address] [address] [address] Jessica Bran Albumin/Globulin [Mass ratio] 1.2 {ratio} Normal [facility] Comment on above: Performed By: #### L IPID, T4, TSH, FT3, CMP #### [facility] [address] [address] [address] Jessica Bran ALP [Catalytic activity/Vol] 64 U/L Normal 46-116 [facility] Comment on above: Performed By: #### L IPID, T4, TSH, FT3, CMP #### [facility] [address] [address] [address] Jessica Bran ALT [Catalytic activity/Vol] 15 U/L Normal 14-59 [facility] Comment on above: Performed By: #### L IPID, T4, TSH, FT3, CMP #### [facility] [address] [address] [address] Jessica Bran Anion gap [Moles/Vol] 8.7 mmol/L Normal [facility] Comment on above: Performed By: #### L IPID, T4, TSH, FT3, CMP #### [facility] [address] [place] [address] Dr. Jessica Bran AST [Catalytic activity/Vol] 17 U/L Normal 15-37 [facility] Comment on above: Performed By: #### L IPID, T4, TSH, FT3, CMP #### [facility] [address] [place] [address] Dr. Jessica Bran Bilirubin [Mass/Vol] 0.7 mg/dL Normal 0.2-1.0 [facility] Comment on above: Performed By: #### L IPID, T4, TSH, FT3, CMP #### [facility] [address] [place] [address] Dr. Jessica Bran Calcium [Mass/Vol] 9.1 mg/dL Normal 8.5-10.1 [facility] Comment on above: Performed By: #### L IPID, T4, TSH, FT3, CMP #### [facility] [address] [place] [address] Dr. Jessica Bran Chloride [Moles/Vol] 105 mmol/L Normal 98-107 [facility] Comment on above: Performed By: #### L IPID, T4, TSH, FT3, CMP #### [facility] [address] [place] [address] Dr. Jessica Bran CO2 [Moles/Vol] 28.4 mmol/L Normal 21.0-32.0 [facility] Comment on above: Performed By: #### L IPID, T4, TSH, FT3, CMP #### [facility] [address] [place] [address] Dr. Jessica Bran Creatinine [Mass/Vol] 0.73 mg/dL Normal 0.55-1.02 [facility] Comment on above: Performed By: #### L IPID, T4, TSH, FT3, CMP #### [facility] [address] [place] [address] Dr. Jessica Bran EGFR-AF SERBIAN >60 Normal >=60 [facility] Comment on above: Performed By: #### L IPID, T4, TSH, FT3, CMP #### [facility] [address] [place] [address] Dr. Jessica Bran EGFR-NON AF SERBIAN >60 Normal >=60 [facility] Comment on above: Performed By: #### L IPID, T4, TSH, FT3, CMP #### [facility] [address] [place] [address] Dr. Jessica Bran Globulin (S) [Mass/Vol] 3.4 g/dL Normal [facility] Comment on above: Performed By: #### L IPID, T4, TSH, FT3, CMP #### [facility] [address] [place] [address] Dr. Jessica Bran Glucose [Mass/Vol] 90 mg/dL Normal 74-106 [facility] Comment on above: Performed By: #### L IPID, T4, TSH, FT3, CMP #### [facility] [address] [place] [address] Dr. Jessica Bran Potassium [Moles/Vol] 4.1 mmol/L Normal 3.5-5.1 [facility] Comment on above: Performed By: #### L IPID, T4, TSH, FT3, CMP #### [facility] [address] [place] [address] Dr. Jessica Bran Protein [Mass/Vol] 7.5 g/dL Normal 6.4-8.2 [facility] Comment on above: Performed By: #### L IPID, T4, TSH, FT3, CMP #### [facility] [address] [place] [address] Dr. Jessica Bran Sodium [Moles/Vol] 138 mmol/L Normal 136-145 [facility] Comment on above: Performed By: #### L IPID, T4, TSH, FT3, CMP #### [facility] [address] [place] [address] Dr. Jessica Bran Urea nitrogen [Mass/Vol] 7.0 mg/dL Normal 7.0-18.0 [facility] Comment on above: Performed By: #### L IPID, T4, TSH, FT3, CMP #### [facility] [address] [place] [address] Dr. Jessica Bran Urea nitrogen/Creatinine [Mass ratio] 9.6 mg/mg Normal [facility] Comment on above: Performed By: #### L IPID, T4, TSH, FT3, CMP #### [facility] [address] [place] [address] Dr. Jessica Bran T4on 05-16-2022 T4 [Mass/Vol] 6.40 ug/dL Normal 4.80-13.90 [facility] Comment on above: Performed By: #### L IPID, T4, TSH, FT3, CMP #### [facility] [address] [place] [address] Dr. Jessica Bran TSHon 05-16-2022 TSH 1.628 uIU/mL Normal 0.358-3.740 [facility] Comment on above: Performed By: #### L IPID, T4, TSH, FT3, CMP #### [facility] [address] [place] [address] Dr. Jessica Bran VITAMIN D 25 OHon 05-16-2022 VIT D 25-OH 26.4 ng/mL Normal [facility] Comment on above: Performed By: #### V ITAD #### [facility] [address] [place] [address] Dr. Jessica Bran VIT D RANGES SEE BELOW Normal [facility] Comment on above: Result Comment: <20 ng/mL Vit D deficient 20 - <30 ng/mL Vit D insufficient 30 - 100 ng/mL Vit D sufficient >100 ng/mL Potential Toxicity Performed By: #### V ITAD #### [facility] [address] [place] [address] Dr. Jessica Bran CBC AUTO DIFFon 07-07-2021 BASO # 0.1 103/ul Normal 0.0-0.1 [facility] Comment on above: Performed By: #### L IPID, T4, TSH, FT3, CMP #### [facility] [address] [place] [address] Dr. Jessica Bran Basophils/100 WBC (Bld) 1.2 % Normal 0.2-2.0 [facility] Comment on above: Performed By: #### L IPID, T4, TSH, FT3, CMP #### [facility] [address] [place] [address] Dr. Jessica Bran EO # 0.1 103/ul Normal 0.0-0.7 [facility] Comment on above: Performed By: #### L IPID, T4, TSH, FT3, CMP #### [facility] [address] [place] [address] Dr. Jessica Bran Eosinophils/100 WBC (Bld) 2.1 % Normal 0.9-7.0 [facility] Comment on above: Performed By: #### L IPID, T4, TSH, FT3, CMP #### [facility] [address] [place] [address] Dr. Jessica Bran Erythrocyte distribution width (RBC) [Ratio] 12.6 % Normal 11.0-15.0 [facility] Comment on above: Performed By: #### L IPID, T4, TSH, FT3, CMP #### [facility] [address] [place] [address] Dr. Jessica Bran Hematocrit (Bld) [Volume fraction] 39.2 % Normal 36.0-48.0 [facility] Comment on above: Performed By: #### L IPID, T4, TSH, FT3, CMP #### [facility] [address] [place] [address] Dr. Jessica Bran Hemoglobin (Bld) [Mass/Vol] 12.5 g/dL Normal 12.0-16.0 [facility] Comment on above: Performed By: #### L IPID, T4, TSH, FT3, CMP #### [facility] [address] [place] [address] Dr. Jessica Bran IG # 0.03 10e3/ul Normal 0.00-0.03 [facility] Comment on above: Performed By: #### L IPID, T4, TSH, FT3, CMP #### [facility] [address] [place] [address] Dr. Jessica Bran IG % 0.5 % Normal 0.0-0.5 [facility] Comment on above: Performed By: #### L IPID, T4, TSH, FT3, CMP #### [facility] [address] [place] [address] Dr. Jessica Bran LYMPH # 1.9 103/ul Normal 1.2-3.8 [facility] Comment on above: Performed By: #### L IPID, T4, TSH, FT3, CMP #### [facility] [address] [place] [address] Dr. Jessica Bran Lymphocytes/100 WBC (Bld) 29.6 % Normal 20.5-60.0 [facility] Comment on above: Performed By: #### L IPID, T4, TSH, FT3, CMP #### [facility] [address] [place] [address] Dr. Jessica Bran MANUAL DIFF REQ NO Normal [facility] Comment on above: Performed By: #### L IPID, T4, TSH, FT3, CMP #### [facility] [address] [place] [address] Dr. Jessica Bran MCH (RBC) [Entitic mass] 28.1 pg Normal 26.7-34.0 [facility] Comment on above: Performed By: #### L IPID, T4, TSH, FT3, CMP #### [facility] [address] [place] [address] Dr. Jessica Bran MCHC (RBC) [Mass/Vol] 31.9 g/dL Normal 29.9-35.2 [facility] Comment on above: Performed By: #### L IPID, T4, TSH, FT3, CMP #### [facility] [address] [place] [address] Dr. Jessica Bran MCV (RBC) [Entitic vol] 88.1 fL Normal 81.0-99.0 [facility] Comment on above: Performed By: #### L IPID, T4, TSH, FT3, CMP #### [facility] [address] [place] [address] Dr. Jessica Bran MONO # 0.5 103/ul Normal 0.3-0.8 [facility] Comment on above: Performed By: #### L IPID, T4, TSH, FT3, CMP #### [facility] [address] [place] [address] Dr. Jessica Bran Monocytes/100 WBC (Bld) 8.3 % Normal 1.7-12.0 [facility] Comment on above: Performed By: #### L IPID, T4, TSH, FT3, CMP #### [facility] [address] [place] [address] Dr. Jessica Bran NEUT # 3.8 103/ul Normal 1.4-6.5 [facility] Comment on above: Performed By: #### L IPID, T4, TSH, FT3, CMP #### [facility] [address] [place] [address] Dr. Jessica Bran Neutrophils/100 WBC (Bld) 58.3 % Normal 43.0-75.0 [facility] Comment on above: Performed By: #### L IPID, T4, TSH, FT3, CMP #### [facility] [address] [place] [address] Dr. Jessica Bran Platelet mean volume (Bld) [Entitic vol] 12.8 fL Normal 9.5-13.5 [facility] Comment on above: Performed By: #### L IPID, T4, TSH, FT3, CMP #### [facility] [address] [place] [address] Dr. Jessica Bran PLT 188 103/ul Normal 150-450 [facility] Comment on above: Performed By: #### L IPID, T4, TSH, FT3, CMP #### [facility] [address] [place] [address] Dr. Jessica Bran RBC 4.45 106/ul Normal 4.20-5.40 [facility] Comment on above: Performed By: #### L IPID, T4, TSH, FT3, CMP #### [facility] [address] [place] [address] Dr. Jessica Bran WBC 6.5 103/ul Normal 4.0-11.0 [facility] Comment on above: Performed By: #### L IPID, T4, TSH, FT3, CMP #### [facility] [address] [address] [address] Jessica Bran FREE THYROXINE INDEX T7on FTI 2.74 Normal [facility] Comment on above: Performed By: #### C MP, T7, LIPID, TSH #### [facility] [address] [address] [address] Jessica Bran T3U 36.0 % Normal 23.5-40.5 [facility] Comment on above: Performed By: #### C MP, T7, LIPID, TSH #### [facility] [address] [place] [address] Dr. Jessica Bran T4 [Mass/Vol] 7.60 ug/dL Normal 4.80-13.90 [facility] Comment on above: Performed By: #### C MP, T7, LIPID, TSH #### [facility] [address] [place] [address] Dr. Jessica Bran GLYCOHEMOGLOBIN A1Con 2021 ADA RECOMMENDATION SEE BELOW Normal [facility] Comment on above: Result Comment: ADA RECOMMENDED LIMIT 4.0 - 6.0 ADA THERAPEUTIC TARGET < 7.0 ACTION SUGGESTED > 7.0 Performed By: #### A 1C #### [facility] [address] [place] [address] Dr. Jessica Bran Glucose [Mass/Vol] 108 mg/dL Normal [facility] Comment on above: Performed By: #### A 1C #### [facility] [address] [place] [address] Dr. Jessica Bran HbA1c (Bld) [Mass fraction] 5.4 % Normal 4.5-6.2 [facility] Comment on above: Performed By: #### A 1C #### [facility] [address] [place] [address] Dr. Jessica Bran LIPID PROFILEon 07-07-2021 CHOL-HDL RATIO NORM SEE BELOW Normal [facility] Comment on above: Result Comment: 3.3 - 4.4 LOW RISK 4.4 - 7.1 AVERAGE RISK 7.1 - 11.0 MODERATE RISK >11.0 HIGH RISK Performed By: #### L IPID, T4, TSH, FT3, CMP #### [facility] [address] [place] [address] Dr. Jessica Bran Cholesterol [Mass/Vol] 140 mg/dL Normal <=200 [facility] Comment on above: Performed By: #### L IPID, T4, TSH, FT3, CMP #### [facility] [address] [place] [address] Dr. Jessica Bran Cholesterol in HDL [Mass/Vol] 46 mg/dL Normal 40-60 [facility] Comment on above: Performed By: #### L IPID, T4, TSH, FT3, CMP #### [facility] [address] [place] [address] Dr. Jessica Bran Cholesterol in LDL [Mass/Vol] 83.4 mg/dL Normal [facility] Comment on above: Performed By: #### L IPID, T4, TSH, FT3, CMP #### [facility] [address] [place] [address] Dr. Jessica Bran Cholesterol.total/Cho lesterol in HDL [Mass ratio] 3.0 {ratio} Normal [facility] Comment on above: Performed By: #### L IPID, T4, TSH, FT3, CMP #### [facility] [address] [place] [address] Dr. eJssica Bran HDL NORMAL > or = 60 mg/dl - LO W CARDIOVASCULAR RISK <40 mg/dl - HIGH CARDIOVASCULAR RISK Normal [facility] Comment on above: Performed By: #### L IPID, T4, TSH, FT3, CMP #### [facility] [address] [place] [address] Dr. Jessica Bran LDL CALC NORMAL SEE BELOW Normal [facility] Comment on above: Result Comment: <100 mg/dl OPTIMAL 100 - 129 mg/dl NEAR OR ABOVE OPTIMAL 130 - 159 mg/dl BORDERLINE HIGH 160 - 189 mg/dl HIGH >190 mg/dl VERY HIGH Performed By: #### L IPID, T4, TSH, FT3, CMP #### [facility] [address] [place] [address] Dr. Jessica Bran Triglyceride [Mass/Vol] 53 mg/dL Normal <=150 [facility] Comment on above: Performed By: #### L IPID, T4, TSH, FT3, CMP #### [facility] [address] [address] [address] Jessica Bran VLDL CALC 10.6 mg/dL Normal [facility] Comment on above: Performed By: #### L IPID, T4, TSH, FT3, CMP #### [facility] [address] [address] [address] Jessica Bran PROF 14(COMP METB)on 022 Albumin [Mass/Vol] 3.8 g/dL Normal 3.4-5.0 [facility] Comment on above: Performed By: #### C MP, T7, LIPID, TSH #### [facility] [address] [address] [address] Jessica Bran Albumin/Globulin [Mass ratio] 1.1 {ratio} Normal [facility] Comment on above: Performed By: #### C MP, T7, LIPID, TSH #### [facility] [address] [address] [address] Jessica Bran ALP [Catalytic activity/Vol] 44 U/L Critically low 46-116 [facility] Comment on above: Performed By: #### C MP, T7, LIPID, TSH #### [facility] [address] [address] [address] Jessica Bran ALT [Catalytic activity/Vol] 16 U/L Normal 14-59 [facility] Comment on above: Performed By: #### C MP, T7, LIPID, TSH #### [facility] [address] [address] [address] Jessica Bran Anion gap [Moles/Vol] 12.4 mmol/L Normal [facility] Comment on above: Performed By: #### C MP, T7, LIPID, TSH #### [facility] [address] [address] [address] Jessica Bran AST [Catalytic activity/Vol] 12 U/L Critically low 15-37 [facility] Comment on above: Performed By: #### C MP, T7, LIPID, TSH #### [facility] [address] [address] [address] Jessica Bran Bilirubin [Mass/Vol] 0.7 mg/dL Normal 0.2-1.0 [facility] Comment on above: Performed By: #### C MP, T7, LIPID, TSH #### [facility] [address] [place] [address] Dr. Jessica Bran Calcium [Mass/Vol] 8.1 mg/dL Critically low 8.5-10.1 Th e [facility] Comment on above: Performed By: #### C MP, T7, LIPID, TSH #### [facility] [address] [place] [address] Dr. Jessica Bran Chloride [Moles/Vol] 103 mmol/L Normal 98-107 [facility] Comment on above: Performed By: #### C MP, T7, LIPID, TSH #### [facility] [address] [place] [address] Dr. Jessica Bran CO2 [Moles/Vol] 24.5 mmol/L Normal 21.0-32.0 [facility] Comment on above: Performed By: #### C MP, T7, LIPID, TSH #### [facility] [address] [place] [address] Dr. Jessica Bran Creatinine [Mass/Vol] 0.79 mg/dL Normal 0.55-1.02 [facility] Comment on above: Performed By: #### C MP, T7, LIPID, TSH #### [facility] [address] [place] [address] Dr. Jessica Bran EGFR-AF SERBIAN >60 Normal >=60 [facility] Comment on above: Performed By: #### C MP, T7, LIPID, TSH #### [facility] [address] [place] [address] Dr. Jessica Bran EGFR-NON AF SERBIAN >60 Normal >=60 [facility] Comment on above: Performed By: #### C MP, T7, LIPID, TSH #### [facility] [address] [place] [address] Dr. Jessica Bran Globulin (S) [Mass/Vol] 3.4 g/dL Normal [facility] Comment on above: Performed By: #### C MP, T7, LIPID, TSH #### [facility] [address] [address] [address] Jessica Bran Glucose [Mass/Vol] 87 mg/dL Normal 74-106 [facility] Comment on above: Performed By: #### C MP, T7, LIPID, TSH #### [facility] [address] [address] [address] Jessica Bran Potassium [Moles/Vol] 3.9 mmol/L Normal 3.5-5.1 [facility] Comment on above: Performed By: #### C MP, T7, LIPID, TSH #### [facility] [address] [place] [address] Dr. Jessica Bran Protein [Mass/Vol] 7.2 g/dL Normal 6.1-8.2 [facility] Comment on above: Performed By: #### C MP, T7, LIPID, TSH #### [facility] [address] [address] [address] Jessica Bran Sodium [Moles/Vol] 136 mmol/L Normal 136-145 [facility] Comment on above: Performed By: #### C MP, T7, LIPID, TSH #### [facility] [address] [place] [address] Dr. Jessica Bran Urea nitrogen [Mass/Vol] 9.0 mg/dL Normal 7.0-18.0 [facility] Comment on above: Performed By: #### C MP, T7, LIPID, TSH #### [facility] [address] [place] [address] Dr. Jessica Bran Urea nitrogen/Creatinine [Mass ratio] 11.4 mg/mg Normal [facility] Comment on above: Performed By: #### C MP, T7, LIPID, TSH #### [facility] [address] [address] [address] Jessica Bran TSHon 07-07-2021 TSH 1.810 uIU/mL Normal 0.470-4.680 [facility] Comment on above: Performed By: #### L IPID, T4, TSH, FT3, CMP #### [facility] [address] [address] [address] Jessica Bran TSH RANGE SEE BELOW Normal [facility] Comment on above: Result Comment: <0.3 4 UIU/ml HYPERTHYROID 0.34-5.60 UIU/ml EUTHYROID >5.60 UIU/ml HYPOTHYROID Performed By: #### L IPID, T4, TSH, FT3, CMP #### [facility] [address] [place], [place] [address] Dr. Jessica Bran Encounters Encounter Date Encounter Type Care Provider Facility Start: 03-13-2023 End: 03-14-2023 ambulatory [facility] Start: 03-13-2023 Encounter for gynecological examination (general) (routine) without abnormal findings [facility] Start: 05-17-2022 End: 05-17-2022 ambulatory BRIAN HOY Facility:[facility] Start: 05-16-2022 End: 05-17-2022 ambulatory BRIAN HOY Facility:[facility] Start: 07-11-2021 Encounter for genera l adult medical examination without abnormal findings BRIAN HERRERA [facility] Start: 07-07-2021 End: 07-08-2021 ambulatory BRIAN HOY Facility:[facility] Start: 07-07-2021 End: 07-08-2021 Encounter for general adult medical examination without abnormal findings BRIAN HERRERA Facility: Start: 05-26-2020 End: 05-26-2020 Subsequent hospital visit by physician Brian Herrera [facility] Comment on above: Intermenstrual bleed ing; Women's annual routine gynecological examination Plan of Treatment Date Care Activity Detail Author Start: 05-19-2024 Lipid panel Lipid screen [employer] [facility] [employer] Phone: Start: 12-31-2022 Screening for malign ant neoplasm of cervix Cervical cancer screen [employer] Phone: Start: 04-27-2021 Influenza vaccination Flu vaccine (# 1) [employer] Phone: Comment on above: Postponed from 11/09 (Patient Refused) Start: 06-13-2020 End: 06-13-2020 Ancillary Procedure [facility] Start: 08-09-1990 DTaP/Tdap/Td vaccine (1 - Tdap) DTaP/Tdap/Td vaccine (1 - Tdap) [facility] [employer] Phone: Start: 08-09-1986 HIV screening HIV screen [facility] Phone: Start: 1970 Hepatitis C screening Hepatitis C sc reen [facility] [employer] Phone: End: 05-26-2020 Cytopathology procedure, preparation of smear, genital source [facility] Routine Women's Annual Routine Gynecological Examination 1 Occurrences starting 05/26/2020 until [facility] Comment on above: 1 Occurrences starti ng 05/26/2020 until 05/26/2020 End: 05-26-2020 Surgical Pathology Surgical Pathology Lab Routine Intermenstrual bleeding 1 Occurrences starting 05/26/2020 until 05/26/2020 [facility] Comment on above: 1 Occurrences starti ng 05/26/2020 until 05/26/2020 Immunizations Immunization Date Immunization Notes Care Provider Mary felix 12-24-2006 tuberculin skin test ; purified protein derivative solution, intradermal Brian [facility] [employer] 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) [employer] Phone: Sex Assigned At Not on file [employer] Phone: Assessments Diagnosis Intermenstrual bleeding Metrorrhagia Women's annual routine gynecological examination Advance Directives No Advanced Directives Records FoundDocuments on File Type Date Recorded 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 [employer] provides no warranty or guarantee of the accuracy or completeness of information in this document.
--- NOTE | 2024-03-27 07:23 | US_ITS ---
The [address] [address] Patient Name: ENOC MONTE MRN: [id number] date: 1970 Sex: F Assigned Patient Location: US Current Patient Location: US Accession/Order Number: [id number] Exam Date: 03/27/2024 07:25 Report Date: 03/27/2024 08:17 At the request of: BRIAN HERRERA Procedure: US abdomen complete EXAM: Abdominal ultrasound complete CLINICAL INDICATION: Right Upper Quadrant Abdominal Pain. COMPARISON: None TECHNIQUE: Grayscale and color Doppler imaging was performed of the abdominal organs. FINDINGS: Liver: Normal hepatic echotexture. No hepatomegaly. No abnormal hepatic masses. Portal and hepatic veins are grossly patent. Small hepatic cysts including a small cluster of cysts versus a cyst with a thin internal septation.. Gallbladder: 4 mm mildly echogenic structure in the gallbladder that may represent a wall adherent stone versus a polyp. Additional smaller similar structure. No gallbladder wall thickening. No pericholecystic fluid. No evidence of sonographic Camarena's sign noted by the face boss. Nondilated gallbladder. Biliary: No intrahepatic biliary ductal dilation. Common bile duct measures 2 mm. Kidneys: No hydronephrosis. No sonographically evident renal calculi. No renal masses. Right kidney measures 10.5 cm length. Left kidney measures 10.7 cm length. Spleen: No splenomegaly. No splenic masses. Pancreas: Poorly visualized due to overlying bowel gas. Aorta/IVC: Patent and normal caliber where visualized. No ascites. US/US abdomen complete IMPRESSION: 1. No acute sonographic abnormalities in the abdomen. 2. Probable small gallbladder polyps. Consider follow-up ultrasound in one year. Electronically authenticated by: TIKA LAWRENCE Date: 03/27/2024 08:17
== END 2024-03-27 07:21 | disposition home or self-care (01) ==
LOC: US 07:20
PROVIDERS: PCP Family Medicine; Visit Provider Family Medicine
DX: Z00.00 Encounter for general adult medical examination without abnormal findings (principal); R10.11 Right upper quadrant pain; R10.9 Unspecified abdominal pain
CPT/HCPCS: 76700